=== PATIENT | male | born 1970 | race Two or more races ===

== ENCOUNTER 2024-08-08 06:31 | Emergency (ER) | payer MEDICAID, SELFPAY ==
[2024-08-08 06:33] VITALS: BMI 38.7
--- NOTE | 2024-08-08 06:58 | XR_ITS ---
Examination: PA lateral chest 2 views TECHNIQUE: Upright PA lateral chest 2 views Examination date: August 08, 2024 0842 hours INDICATIONS: Chest pain and bilateral leg pain and swelling beginning 3 months ago FINDINGS: Normal heart size Lungs are clear. The osseous structures are intact IMPRESSION: No active disease
--- NOTE | 2024-08-08 06:58 | EKG_ITS ---
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
--- NOTE | 2024-08-08 06:58 | PD.EDRME ---
Rapid Medical Screening Exam RME Arrival date/time: 08/08/24 06:31 53-year-old male with no known medical history presents to the emergency room with a chief complaint of bilateral lower extremity swelling x 1 week. I have greeted and performed a focused initial assessment of this patient. A comprehensive ED assessment and evaluation of the patient, analysis of all test results, and completion of the medical decision making process will be conducted by additional ED providers. Chief Complaint: Extremity Problem,Nontraumatic Time Seen by Provider: 08/08/24 06:39 Vital signs reviewed by provider: Yes
[2024-08-08 07:10] VITALS: BP 135/85; PULSE 82; RESP 16; TEMP 36.7; O2SAT 98
[2024-08-08 08:15] LABS: Basophils # (Auto) 0.1 Thou/mm3 (0.0-0.2); Basophils % (Auto) 1 % (0-2.5); Eosinophils # (Auto) 0.6 Thou/mm3 (0.0-0.5); Eosinophils % (Auto) 6 % (0-10); Hematocrit 52.8 % (41.0-53.0); Hemoglobin 17.4 g/dL (13.5-16.0); Immature Granulocytes % (Auto) 1 % (0-0); Immature Granulocytes Auto 0.09 Thou/mm3 (0.00-0.00); Lymphocytes # (Auto) 1.5 Thou/mm3 (1.0-4.8); Lymphocytes % (Auto) 14 % (10-50); Mean Corpuscular Hemoglobin 28.7 pg (25.0-35.0); Mean Corpuscular Volume 87 fL (80-100); Monocytes # (Auto) 1.3 Thou/mm3 (0.0-0.8); Monocytes % (Auto) 12 % (0-12); Neutrophils # (Auto) 7.2 Thou/mm3 (1.8-7.7); Neutrophils % (Auto) 67 % (37-80); Nucleated Red Blood Cell % 0 /100 WBC (0); Platelet Count 241 Thou/mm3 (140-440); RDW Standard Deviation 62.6 fL (35.1-43.9); Red Blood Count 6.07 Miln/mm3 (4.50-5.90); White Blood Count 10.7 Thou/mm3 (3.8-10.6)
[2024-08-08 08:40] LABS: B-Type Natriuretic Peptide < 20 pg/mL (0-100)
[2024-08-08 08:41] LABS: Alanine Aminotransferase 107 U/L (10-49); Albumin, Serum 4.3 gm/dL (3.5-5.0); Albumin/Globulin Ratio 1.7 (1.2-2.2); Alkaline Phosphatase 61 U/L (46-116); Anion Gap 7 (7-16); Aspartate Amino Transferase 88 U/L (0-34); BUN/Creatinine Ratio 8 Ratio (12-20); Bilirubin,Total 0.8 mg/dL (0.3-1.2); Blood Urea Nitrogen 10 mg/dL (9-23); Calcium 8.8 mg/dL (8.3-10.6); Calcium (Corrected) 8.8 mg/dL (8.5-10.1); Carbon Dioxide 27.3 mMol/L (20.0-31.0); Chloride 101 mMol/L (98-107); Creatinine (Component) 1.2 mg/dL (0.6-1.3); Estimated Creatinine Clearance 83.3 mL/min (>60); Globulin 2.6 gm/dL (2.3-3.5); Glucose 111 mg/dL (74-106); Magnesium 1.9 mg/dL (1.6-2.6); Osmolality,Calculated 270 (275-295); Potassium 4.9 mMol/L (3.4-5.1); Sodium 135 mMol/L (136-145); Total Protein 6.9 gm/dL (5.7-8.2); Troponin I < 0.020 ng/mL (0.0-0.045); eGFR > 60 See Note
[2024-08-08 08:47] LABS: Collection Type, Urine Clean Catch; Squamous Epithelial Cell,Urine 0 /hpf (0-5)
[2024-08-08 09:05] LABS: Amorphous Crystals,Urine Present (Absent); Bacteria,Urine Rare; Bilirubin,Urine Negative (Negative); Blood,Urine Negative (Negative); Clarity,Urine Clear (Clear/Hazy); Color,Urine Yellow (Lt Yel-Yel); Glucose, Urine Negative (Negative); Ketones,Urine Negative (Negative); Leukocyte Esterase,Urine Negative (Negative); Nitrite,Urine Negative (Negative); Protein,Urine Trace (Neg - Trace); RBC,Urine 2 /hpf (0-3); Specific Gravity,Urine 1.022 (1.001-1.035); Urobilinogen,Urine Negative mg/dL (0.0-1.0); WBC,Urine 2 /hpf (0-5)
[2024-08-08 09:11] LABS: Amphetamine/Methamp Scrn,U Negative (Negative); Barbiturate Screen,Urine Negative (Negative); Benzodiazepines Screen,Urine Negative (Negative); Benzoylecgonine Screen, Ur Negative (Negative); Fentanyl Screen,Urine Negative (Negative); Opiate Screen,Urine Negative (Negative); THC Screen,Urine Positive (Negative)
[2024-08-08 09:17] LABS: INR 1.1 (0.9-1.3); Partial Thromboplastin Time 24.3 Seconds (22.0-36.0); Prothrombin Time 12.4 Seconds (9.0-12.2)
--- NOTE | 2024-08-08 10:59 | PC.NURSE ---
CALLED FROM [facility] AND NO ANSWER
[2024-08-08 11:04] VITALS: BP 140/91; PULSE 87; RESP 18; TEMP 36.9; O2SAT 98
--- NOTE | 2024-08-08 11:09 | EDNOTE_ITS ---
<Statement entered by Adelina Acuna MD - 08/08/24 17:53> As co-signing physician, I was present and available for consult prn. I concur with the plan and care as documented by the midlevel provider. ED General RME/HPI General Chief complaint: Extremity Problem,Nontraumatic Stated complaint: CHANDNI. LEG SWELLING Time Seen by Provider: 08/08/24 06:39 Arrival date/time: 08/08/24 06:31 CC: Lower extremity edema x 1 week ongoing however the patient has had intermittent swelling lower extremities since December of last year when he had a open sore on his foot that required antibiotics. Patient denies fever chest pain shortness of breath or difficulty breathing RME / HPI RME / HPI narrative: 08/08/24 06:31 53-year-old male with no known medical history presents to the emergency room with a chief complaint of bilateral lower extremity swelling x 1 week. I have greeted and performed a focused initial assessment of this patient. A comprehensive ED assessment and evaluation of the patient, analysis of all test results, and completion of the medical decision making process will be conducted by additional ED providers. Related Data Previous Rx's ?Medication ?Instructions ?Recorded furosemide 20 mg tablet (Lasix) 20 mg PO QAM #2 tabs 0 08/08/24 Allergies Allergy/AdvReac Type Severity Reaction Status Date / Time No Known Allergies Allergy Verified 08/08/24 06:32 Review of Systems Review of Systems Narrative Review of Systems: GEN: No fever, no chills, no weight loss EYES: No discharge, no visual changes, no pain HEENT: No ear pain, no congestion, no sore throat PULM: No shortness of breath, no cough, no congestion CV: No chest pain, no dyspnea on exertion, no palpitations GI: No nausea, no vomiting, no diarrhea, no pain, no constipation : No frequency, no urgency, no dysuria MUSC/SKEL: No joint pain, no back pain SKIN: No rash PSYCH: No hallucinations, no depression HEME/LYMPH: No easy bleeding or bruising tendencies NEURO: No weakness, no headache Past Medical History Past Medical History CARDIAC: Negative Congestive Heart Failure RESPIRATORY: Negative Chronic Obstructive Pulmonary Disease (COPD) GENITOURINARY: Negative Renal Disease ENDOCRINE: Negative Diabetes Mellitus Type 1 or Diabetes Mellitus Type 2 Social History SMOKING STATUS: Current every day smoker ED Exam Narrative Physical exam: [General: Obese not in any acute distress Head normocephalic HEENT: Within acceptable limits Neck is supple nontender Chest equal chest rise nontender to palpation Respiratory: Clear to auscultation no wheezes crackles or rubs CV: Rate rhythm is regular no murmurs rubs or clicks Abdomen is distended secondary to body habitus soft nontender no masses positive bowel sounds all 4 quadrants Back: No CVA tenderness no spinous process tenderness from cervical spine thoracic and lumbar spine Skin: Intact no petechiae rash induration ulceration or crepitus Extremities: Moving all extremity against resistance cap refill less than 2 seconds neurosensory intact. Nonpitting edema in the left lower extremity minimal edema in the right lower extremity moderate amount of edema to the dorsum of the foot. No erythema streaking not warm to touch. No open lesions or indurations. Neuro: Awake alert oriented x3 Glascow coma 15 no focal deficits] Course Quality Measures none Orders Category Date Time Status EKG (ED ONLY) *Do not use* NOW Care 08/08/24 06:58 Completed EKG (ED Only) Stat Exams 08/08/24 06:58 Draft XR chest 2V Stat Exams 08/08/24 06:58 Completed B-Type Natriuretic Peptide Stat Lab 08/08/24 08:03 Completed CBC Stat Lab 08/08/24 08:03 Completed Comprehensive Metabolic Panel Stat Lab 08/08/24 08:03 Completed Drug Screen,Urine Stat Lab 08/08/24 08:38 Completed Magnesium Stat Lab 08/08/24 08:03 Completed Partial Thromboplastin Time Stat Lab 08/08/24 08:03 Completed Prothrombin Time with INR Stat Lab 08/08/24 08:03 Completed Troponin I Stat Lab 08/08/24 08:03 Completed Urinalysis Stat Lab 08/08/24 08:38 Completed Vital Signs Vital signs: Vital Signs Temperature 98.1 F 08/08/24 07:10 Pulse Rate 82 08/08/24 07:10 Respiratory Rate 16 08/08/24 07:10 Blood Pressure 135/85 H 08/08/24 07:10 Pulse Oximetry (%) 98 08/08/24 07:10 Oxygen Delivery Method Room Air 08/08/24 07:10 [facility] Patient data External records reviewed:: [facility] previous records Clinical information provided by:: patient Social determinants that could affect healthcare access:: none Patient has the following chronic illnesses:: None How is presenting disease/condition affected by chronic disease/condition?: u neffected by Evaluation data The following diagnostics were reviewed and interpreted by me:: lab results, radiology exam(s) and EKG tracing(s) Lab and/or radiology exams considered but not ordered:: EKG performed at 0 713 shows a ventricular rate of 83 DC interval 210 QRS of 116 QTc of 359 sinus rhythm first-degree block. Show CBC with a WBC of 10.7 hemoglobin of 17.4 crit of 52.8 no thrombocytopenia Coags show PT of 12.4 all other coags within acceptable limits. CMP shows no significant electrolyte imbalances renal impairment transaminitis's are mildly elevated no T. bili elevation Troponin and BNP are within acceptable limits Urine is unremarkable UDS is positive for marijuana. Chest x-ray shows no acute findings interpreted by me read by radiology Interpretation Summary: There is minimal edema in the lower extremities will give the patient a small amount of Lasix for 2 days he is advised to take them in the morning only for the next couple of days and follow-up with his primary care provider there is no acute finding that requires emergent or immediate intervention. Medications Medications considered but not ordered:: None Medication administrations:: None Consultations Consultation(s) initiated? (list below): No Diagnosis Differential Diagnosis ED Complaint MDM: Lower extremity edema CHF COPD with CHF Most likely diagnosis given after review of the tests above:: Lower extremity edema Admission Indicated Admission indicated?: not indicated Explain why admission is indicated or not indicated:: Stable for discharge Admission Request Was there a request for admission?: No Disposition Plan Disposition Plan: Discharge Discharge Attestation Discharge Attestation: The patient and all family members were given an opportunity to ask questions and understood the discharge instructions. Discharge instructions specifically effects, indications for sooner follow up or return to the emergency department, and the expected course of current diagnosis. Patient condition: Stable Medical Decision Making Differential Diagnosis Differential Diagnosis: Lower extremity edema CHF COPD with CHF Lab Data 08/08/24 08:03 08/08/24 08:03 Labs: Lab Results 08/08/24 08/08/24 Range/Units 08:03 08:38 WBC 10.7 H (3.8-10.6) Thou/mm3 RBC 6.07 H (4.50-5.90) Miln/mm3 Hgb 17.4 H (13.5-16.0) g/dL Hct 52.8 (41.0-53.0) % MCV 87 (80-100) fL MCH 28.7 (25.0-35.0) pg MCHC 33.0 (31.0-37.0) g/dl RDW Std Deviation 62.6 H (35.1-43.9) fL Plt Count 241 (140-440) Thou/mm3 Neut % (Auto) 67 (37-80) % Lymph % (Auto) 14 (10-50) % [place] % (Auto) 12 (0-12) % Eos % (Auto) 6 (0-10) % Baso % (Auto) 1 (0-2.5) % Neut # (Auto) 7.2 (1.8-7.7) Thou/mm3 Lymph # (Auto) 1.5 (1.0-4.8) Thou/mm3 [place] # (Auto) 1.3 H (0.0-0.8) Thou/mm3 Eos # (Auto) 0.6 H (0.0-0.5) Thou/mm3 Baso # (Auto) 0.1 (0.0-0.2) Thou/mm3 Immature Gran # (Auto) 0.09 H (0.00-0.00) Thou/mm3 Absolute Nucleated RBC 0.00 (0.00-0.00) Thou/mm3 Immature Gran % 1 H (0-0) % Nucleated RBC % 0 (0) /100 WBC PT 12.4 H (9.0-12.2) Seconds INR 1.1 (0.9-1.3) APTT 24.3 (22.0-36.0) Seconds Sodium 135 L (136-145) mMol/L Potassium 4.9 (3.4-5.1) mMol/L Chloride 101 (98-107) mMol/L Carbon Dioxide 27.3 (20.0-31.0) mMol/L Anion Gap 7 (7-16) BUN 10 (9-23) mg/dL Creatinine 1.2 (0.6-1.3) mg/dL Estim Creat Clear Calc 83.3 (>60) mL/min eGFR > 60 (60 - ) See Note BUN/Creatinine Ratio 8 L (12-20) Ratio Glucose 111 H (74-106) mg/dL Calculated Osmolality 270 L (275-295) Calcium 8.8 (8.3-10.6) mg/dL Corrected Calcium 8.8 (8.5-10.1) mg/dL Magnesium 1.9 (1.6-2.6) mg/dL Total Bilirubin 0.8 (0.3-1.2) mg/dL AST 88 H (0-34) U/L ALT 107 H (10-49) U/L Alkaline Phosphatase 61 (46-116) U/L Troponin I < 0.020 (0.0-0.045) ng/mL B-Natriuretic Peptide < 20 (0-100) pg/mL Total Protein 6.9 (5.7-8.2) gm/dL Albumin 4.3 (3.5-5.0) gm/dL Globulin 2.6 (2.3-3.5) gm/dL Albumin/Globulin Ratio 1.7 (1.2-2.2) Ur Collection Type Clean Catch Urine Color Yellow (Lt Yel-Yel) Urine Clarity Clear (Clear/Hazy) Urine pH 6.0 (5.0-7.0) Ur Specific [place] 1.022 (1.001-1.035) Urine Protein Trace (Neg - Trace) Urine Glucose (UA) Negative (Negative) Urine Ketones Negative (Negative) Urine Blood Negative (Negative) Urine Nitrite Negative (Negative) Urine Bilirubin Negative (Negative) Urine Urobilinogen (Auto) Negative (0.0-1.0) mg/dL Ur Leukocyte Esterase Negative (Negative) Urine RBC 2 (0-3) /hpf Urine WBC 2 (0-5) /hpf Ur Squamous Epith Cells 0 (0-5) /hpf Amorphous Crystals Present A (Absent) Urine Bacteria Rare (None) Urine Opiates Screen Negative (Negative) Urine Fentanyl Screen Negative (Negative) Ur Barbiturates Screen Negative (Negative) U Amphetamin/Meth Scrn Negative (Negative) U Benzodiazepines Scrn Negative (Negative) U Cocaine Metab Screen Negative (Negative) U Marijuana (THC) Screen Positive A (Negative) Discharge Plan Plan Patient Disposition: Other Care w/in Hosp ([facility]) Patient condition on transfer: Stable Prescriptions/Referrals Prescriptions/Med Rec: New furosemide [Lasix] 20 mg tablet 20 mg PO QAM Qty: 2 0RF Referrals: Natalya Grey MD [Primary Care Provider] - In 1 week Problem List Clinical Impression: Edema of extremity Patient/Caregiver Discharge Instructions Education Materials: Taking a Diuretic, ED Leg Swelling in a Single Leg Additional Instructions: Take the medications for the next 2 days sleep with your feet elevated. Print Language: Somali Stand Alone Forms: Lizy Award Info., Patient Portal Info Letter PA/THERMAL SPRAY OPERATOR Supervising Physician PA/THERMAL SPRAY OPERATOR Supervising Physician: Gold Martinez ENP
[2024-08-08 12:28] VITALS: BP 151/95; PULSE 86; RESP 16; TEMP 36.8; O2SAT 98
== END 2024-08-08 12:47 | disposition home or self-care (01) ==
PROVIDERS: Nurse Practitioner Family; Emergency Provider Emergency Medicine; PCP Family Medicine
DX: R60.0 Localized edema (principal); R07.9 Chest pain, unspecified
CPT/HCPCS: 36415; 71046; 80053; 80307; 81001; 83735; 83880; 84484; 85025; 85610; 85730; 93005; 99283

== ENCOUNTER 2025-03-18 12:39 | Emergency (ER) | payer MEDICAID, SELFPAY ==
[2025-03-18 12:43] VITALS: BMI 33.0
[2025-03-18 12:44] VITALS: BP 166/107; PULSE 106; RESP 18; TEMP 37.5; O2SAT 97
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
[2025-03-18 13:16] VITALS: PULSE 100
[2025-03-18] MEDS: SODIUM CHLORIDE 0.9% 1000 ML 1,000 ML 100 ML IV (13:25)
[2025-03-18 13:58] LABS: Basophils # (Auto) 0.0 Thou/mm3 (0.0-0.2); Basophils % (Auto) 0 % (0-2.5); Eosinophils # (Auto) 0.1 Thou/mm3 (0.0-0.5); Eosinophils % (Auto) 1 % (0-10); Hematocrit 52.5 % (41.0-53.0); Hemoglobin 18.0 g/dL (13.5-16.0); Immature Granulocytes Auto 0.05 Thou/mm3 (0.00-0.00); Lymphocytes # (Auto) 1.1 Thou/mm3 (1.0-4.8); Lymphocytes % (Auto) 12 % (10-50); Mean Corpuscular HGB Conc 34.3 g/dl (31.0-37.0); Mean Corpuscular Hemoglobin 31.1 pg (25.0-35.0); Mean Corpuscular Volume 91 fL (80-100); Monocytes # (Auto) 0.5 Thou/mm3 (0.0-0.8); Monocytes % (Auto) 5 % (0-12); Neutrophils # (Auto) 7.4 Thou/mm3 (1.8-7.7); Neutrophils % (Auto) 80 % (37-80); Nucleated Red Blood Cell # 0.00 Thou/mm3 (0.00-0.00); Nucleated Red Blood Cell % 0 /100 WBC (0); Platelet Count 237 Thou/mm3 (140-440); RDW Standard Deviation 49.1 fL (35.1-43.9); Red Blood Count 5.78 Miln/mm3 (4.50-5.90); White Blood Count 9.2 Thou/mm3 (3.8-10.6)
[2025-03-18 14:06] LABS: INR 1.0 (0.9-1.3); Partial Thromboplastin Time 22.2 Seconds (22.0-36.0); Prothrombin Time 10.8 Seconds (9.0-12.2)
[2025-03-18 14:11] LABS: Alanine Aminotransferase 35 U/L (10-49); Albumin, Serum 4.8 gm/dL (3.5-5.0); Albumin/Globulin Ratio 2.3 (1.2-2.2); Alkaline Phosphatase 64 U/L (46-116); Anion Gap 10 (7-16); Aspartate Amino Transferase 37 U/L (0-34); BUN/Creatinine Ratio 8 Ratio (12-20); Bilirubin,Total 0.5 mg/dL (0.3-1.2); Blood Urea Nitrogen 8 mg/dL (9-23); Calcium 9.6 mg/dL (8.3-10.6); Calcium (Corrected) 9.6 mg/dL (8.5-10.1); Carbon Dioxide 27.5 mMol/L (20.0-31.0); Chloride 105 mMol/L (98-107); Creatinine (Component) 1.0 mg/dL (0.6-1.3); Estimated Creatinine Clearance 91.2 mL/min (>60); Globulin 2.1 gm/dL (2.3-3.5); Glucose 169 mg/dL (74-106); Osmolality,Calculated 285 (275-295); Potassium 4.0 mMol/L (3.4-5.1); Sodium 142 mMol/L (136-145); Total Protein 6.9 gm/dL (5.7-8.2); eGFR > 60 See Note
[2025-03-18 14:51] VITALS: BP 128/100; PULSE 88; RESP 14; TEMP 36.9; O2SAT 96
[2025-03-18] MEDS: LIDOCAINE HCL 1% 20 ML VIAL INFL (15:58)
--- NOTE | 2025-03-18 16:29 | PC.NURSE ---
DR. QUINTANILLA IN ROOM TO STITCH LIP
[2025-03-18 16:30] VITALS: BP 158/64; PULSE 77; RESP 18; O2SAT 98
== END 2025-03-18 16:55 | disposition home or self-care (01) ==
PROVIDERS: Emergency Provider Family Medicine
DX: S01.511A Laceration without foreign body of lip, initial encounter (principal); Y09 Assault by unspecified means
CPT/HCPCS: 12011; 36415; 70450; 70486; 80053; 85025; 85610; 85730; 96360; 96361; 99283; J3490; J7030

== ENCOUNTER → 2025-03-23 | Outpatient (CLI) | payer MEDICAID, SELFPAY ==
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
== END | disposition home or self-care (01) ==
LOC: CDIM 14:59
PROVIDERS: PCP Student in an Organized Health Care Education/Training Program; Referring Provider Student in an Organized Health Care Education/Training Program; Visit Provider Student in an Organized Health Care Education/Training Program
DX: S59.901A Unspecified injury of right elbow, initial encounter (principal); Y09 Assault by unspecified means
CPT/HCPCS: 73080